=== PATIENT | female | born 1995 | race Caucasian/White ===

== ENCOUNTER 2022-07-24 00:17 | Day surgery (SDC) | payer OTHER, SELFPAY ==
[2022-07-22 10:20] VITALS: BMI 42.1
--- NOTE | 2022-07-22 10:25 | PC.NURSE ---
Report to the Outpatient Waiting Room, entrance under the green pavilion located off [facility], at time 1000 on date 07/24/22. Planned Procedure Time: 1200. Time changes happen often and if your time is changed the preop area will call you the afternoon before. - You and your visitor will be asked to self-screen and do not enter if you have any COVID symptoms. - Only one visitor is requested with a max of two and NO children visitors are allowed at this time. - The patient visitor may be requested to leave or wait in car when not with patient due to distancing restrictions. - A mask is optional within the hospital. Patients may have clear liquids (water, carbonated beverages, clear teas, apple juice) until 3 hours prior to surgery with a maximum of 20 ounces. - No food from midnight until time of surgery Take the following medications with a SIP of water the morning of surgery: NONE Medications to discontinue per physician: N/A Date to take last dose: N/A Please no make-up, nail korean, hairspray, perfume, deodorant, or body powder the day of surgery. No jewelry (including any body piercings) or valuables the day of surgery, leave them at home. Please take a shower or bath the night before, or the morning of, surgery with an antibacterial soap. Wear comfortable, loose fitting clothing. - Jewelry must be removed prior to entering the operating room. Rings and piercings that are not removed may be cut off. - The hospital will not accept responsibility for valuables. - Please leave all valuables, including medications, at home the day of surgery. If you are going home after surgery, a licensed cdl bulk driver must drive you home. - NO public transportation without another adult if you receive anesthesia. - We recommend that an adult stay with you for 24 hours following discharge. - We also recommend that you do not drive, make important decision, drink alcoholic beverages, or take any drugs that were not prescribed by your health care provider for at least 24 hours after your discharge time. Follow any additional instructions given to you from your surgeon. If you or anyone in your household have experienced Covid symptoms in the past week, please notify your surgeon or the nurse liaison at the phone number below for possible testing. Telephone instructions given to PT - GRISELDA STEWART and asked if any additional questions and then verbalized understanding. Patient advised to call surgeon office or pre surgery nurse liaison [phone] if any additional questions.
--- NOTE | 2022-07-23 09:44 | P.PNAN_ITS ---
Anes - Initial Pre Proc Eval Procedure: Operation Date: 07/24/22 12:00 Proposed Procedures p Partial Hymenectomy - Kecia Conner MD Date/Time: 07/23/22 09:44 Surgeon: Kecia Conner MD Pre Op Diagnosis: Septate Hymen Patient Data Age: 27 Gender: F Height: 1.68 m Weight: 118.4 kg Allergies Allergy/AdvReac Type Severity Reaction Status Date / Time No Known Allergies Allergy Unverified 07/24/22 10:20 Home Medications Medication Instructions Recorded Confirmed Type cetirizine 5 mg-pseudoephedrine ER 1 tablet PO Q12H PRN Allergy 07/22/22 07/24/22 History 120 mg tablet,extended Symptoms release,12hr (Zyrtec-D) Patient hx anesthesia problems: none Family hx anesthesia problems: none Results Review: All pre-operative results and documents have been reviewed as part of the pre- operative evaluation. [facility] Social History Social History Smoking status: Never smoker Alcohol intake: current Alcohol use details: 5/MONTH Substance use: never Substance use type: does not use Living arrangements: with family Spiritual care concerns: No Anes - Eval Final PreProcedure Day of Procedure 07/23/22 09:44 Patient weight: morbidly obese Heart: regular rate and rhythm Lungs: clear to auscultation Airway: Mallampati scale class II Neurological: alert and oriented Last oral intake: >/= 8 hours ASA classification: III Emergent: no Anesthetic plan: proceed Anesthesia type and monitoring: general GIVS and LMA and standard monitoring Results Review: All pre-operative results and documents have been reviewed as part of the pre- operative evaluation. Informed Consent: The patient's anesthetic plan and its attendant risks and benefits were discussed with the patient/family/POA. Questions were solicited and answers provided to the satisfaction of the patient/family/POA.
[2022-07-24] MEDS: LACTATED RINGERS 1,000 ML 30 ML IV CONT (10:30)
[2022-07-24] MEDS: SCOPOLAMINE 1.5 MG PATCH TRANSDERM (10:43)
[2022-07-24 10:51] VITALS: BP 125/68; PULSE 88; RESP 18; TEMP 36; O2SAT 99
--- NOTE | 2022-07-24 12:03 | P.HP_ITS ---
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 never used tampons or had sex. finally wants it fixed. history of anxiety and depression, and on OCP for miki/dysmenorrhea. Review of Systems Review of Systems: All systems reviewed & are unremarkable except as noted in HPI and below [facility] Social History Social History Smoking status: Never smoker Alcohol intake: current Alcohol use details: 5/MONTH Substance use: never Substance use type: does not use Living arrangements: with family Spiritual care concerns: No Meds Home Medications and Allergies Home Medications Medication Instructions Recorded Confirmed Type cetirizine 5 mg-pseudoephedrine ER 1 tablet PO Q12H PRN Allergy 07/22/22 07/24/22 History 120 mg tablet,extended Symptoms release,12hr (Zyrtec-D) Allergies Allergy/AdvReac Type Severity Reaction Status Date / Time No Known Allergies Allergy Unverified 07/24/22 10:20 Vital Signs Vital Signs - 24 hr 07/24/22 10:51 Temperature 96.8 F L Pulse Rate 88 Respiratory Rate 18 Blood Pressure 125/68 Pulse Oximetry 99 Oxygen Delivery Room Air Exam Const: General: no acute distress Resp: Effort & Inspection: normal respiratory effort Auscultation: clear to auscultation bilaterally Cardio: Rate: regular rate Rhythm: regular rhythm GI: GI Palp: Yes Soft to palpation Extrem: General: normal to inspection Assessment and Plan Assessment and plan (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
--- NOTE | 2022-07-24 12:05 | WPDHPUPDATE1 ---
History and Physical Update Update Date/Time: 07/24/22 12:05 History and Physical has been reviewed, including an updated exam of the patient. There are NO changes in the patient's condition. Risks, benefits, and alternatives have been discussed and questions answered. Patient agrees to proceed with procedure.
[2022-07-24] MEDS: LIDOCAINE HCL 1% PF 30 ML VIAL 10 ML INFILTRATE (12:38)
--- NOTE | 2022-07-24 12:44 | P.OP_ITS ---
Procedure Note - Detailed Date of Procedure 07/24/22 Pre-op Diagnosis Septate Hymen Post-op Diagnosis Same Procedure Performed hymenectomy Surgeon Kecia Conner MD Psychologist Research Assistant none Anesthesia MAC and Local Indications septate hymen Findings septate hymen with posterior thickening Description of Procedure The patient was taken to the operating room and placed in supine position. She received MAC and was placed in dorsal lithotomy in stirrups. The vulva and introitus were prepped and draped. 10cc lidocaine instilled at the attachments of the hymen. The anterior attachment of the hymen was grasped with an Allis clamp and with a Metzenbaum scissors with care taken to avoid the urethral meatus. Similarly the posterior attachment of the hymen was grasped with Allis clamps and incised and excised with a scalpel. The incisions were then closed with interrupted sutures of 3-0 vicryl on the anterior aspect and a running suture on the posterior aspect and hemostasis was noted. The patient tolerated the procedure well. Estimated Blood Loss 20 Drains No Packing No Pathology None sent Complications No immediate complications Condition Stable Disposition Floor
[2022-07-24 12:46] VITALS: BP 106/63; PULSE 83; RESP 14; O2SAT 100
[2022-07-24 13:15] VITALS: BP 119/71; PULSE 70; RESP 20
[2022-07-24 13:45] VITALS: BP 109/68; PULSE 67; RESP 20
[2022-07-24 14:10] VITALS: BP 107/64; PULSE 71; RESP 20
== END 2022-07-24 14:15 | disposition home or self-care (01) ==
PROVIDERS: Visit Provider Obstetrics & Gynecology
PROC: (CPT 56700; principal; 2022-07-24 12:00)
DX: Q52.4 Other congenital malformations of vagina (principal); E66.01 Morbid (severe) obesity due to excess calories; Z68.41 Body mass index [BMI] 40.0-44.9, adult
CPT/HCPCS: 56700; A9270; J1100; J2250; J2405; J3010; J7120